=== PATIENT | female | born 1985 | race Caucasian/White ===

== ENCOUNTER 2016-12-11 14:14 | Emergency (ER) | payer OTHER ==
[~2016-12-11] VITALS: Ht 160 cm; Wt 63.5 kg
[~2016-12-11 14:14] MED LIST: TRAM-48 PO
[2016-12-11 14:15] VITALS: BP 130/85
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
[2016-12-11] MEDS: MORPHINE SULFATE 2 MG/ML DISP.SYRIN. IV/SQ PRN ×2 (15:27→16:14)
[2016-12-11 15:30] LABS: BILIRUBIN,URINE NEGATIVE (NEG); GLUCOSE,URINE NEGATIVE (NEG); NITRITE,URINE POSITIVE (NEG); PH,URINE 5.5; PROTEIN,URINE NEGATIVE (NEG-TRACE); UROBILINOGEN,URINE 0.2 mg/dL (0.2 mg/dL)
[2016-12-11] MEDS ORDERED: ONDANSETRON PF 4 MG/2 ML VIAL. IV ONE (15:30)
[2016-12-11] MEDS ORDERED: IV NORMAL SALINE 1000ML BAG 1,000 ML IV SCH (15:30)
[2016-12-11 16:01] LABS: BACTERIA,URINE MANY /HPF (0-FEW); RBC,URINE 0 /HPF (0-2); SQUAMOUS EPITHELIAL CELL,UR MOD /LPF
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
[2016-12-11] MEDS ORDERED: HYDR-971 PO (16:31)
[2016-12-11] MEDS ORDERED: HYDROcodone/APAP 7.5/325MG 1 TAB TABLET PO ONE (16:45)
[2016-12-11 17:05] LABS: BASO # 0.1 x10^3/uL (0.0-0.2); BASO % 1 % (0-3); EOS % 1 % (0-3); HEMATOCRIT 40.5 % (36.0-47.0); HEMOGLOBIN 13.8 g/dL (12.0-15.5); LYMPH # 3.1 x10^3/uL (1.0-4.8); LYMPH % 20 % (24-48); MEAN CORPUSCULAR HEMOGLOBIN 30 pg (25-35); MEAN CORPUSCULAR HGB CONC 34 g/dL (31-37); MEAN CORPUSCULAR VOLUME 89 fL (79-100); MONO % 5 % (0-9); NEUT % 73 % (31-73); PLATELET COUNT 340 x10^3/uL (140-400); RED BLOOD COUNT 4.57 x10^6/uL (3.50-5.40); RED CELL DISTRIBUTION WIDTH 13.2 % (11.5-14.5); WHITE BLOOD COUNT 15.2 x10^3/uL (4.0-11.0)
[2016-12-11 17:17] LABS: CALCIUM 8.8 mg/dL (8.5-10.1); CREATININE 0.7 mg/dL (0.6-1.0); GFR 98.3; POTASSIUM 4.1 mmol/L (3.5-5.1)
--- NOTE | 2016-12-12 10:46 | EKG ---
[facility] [address] [place] [address] Test Date: 2016-12-11 Test Time: 14:26:31 Pat Name: FREDERICK DALE Department: Room: Gender: F Senior [employer]: : 1985 Requested By: DELROY HOFFMAN Order Number: [id number] Reading MD: Payton Coyle Measurements Intervals [place] Rate: 98 P: 54 MI: 118 QRS: 70 QRSD: 86 T: 29 QT: 326 QTc: 418 Interpretive Statements SINUS RHYTHM INCOMPLETE RIGHT BUNDLE BRANCH BLOCK RI6.01 Unconfirmed report No previous ECG available for comparison Electronically Signed On 12-14-2016 22:23:34 CDT by Payton Coyle
--- NOTE | 2016-12-13 16:35 | VNOTE ---
CALL BACK NOTE CALL BACK Microbiology 12/11/16 Urine Culture - Final, Complete 12/11/16 Urine Culture Result 1 (BELKIS) - Final, Complete 12/11/16 Antimicrobic Susceptibility - Final, Complete Attempted to contact patient regards to urine being positive for Klebsiella pneumonia. Contacted the patient via phone number provided by registration. Phone message states that the phone number is not accepting any calls and no messages can be left. Patient will be notified by certified letter to the address provided by registration STACI VÁSQUEZ APRN Dec 13, 2016 16:35
== END 2016-12-11 16:55 | disposition home or self-care (01) ==
LOC: ER 14:14
DX: S16.1XXA Strain of muscle, fascia and tendon at neck level, initial encounter (principal); S09.90XA Unspecified injury of head, initial encounter; G89.29 Other chronic pain; M79.602 Pain in left arm; R07.89 Other chest pain; R00.0 Tachycardia, unspecified; F12.10 Cannabis abuse, uncomplicated; G90.512 Complex regional pain syndrome I of left upper limb; Z88.0 Allergy status to penicillin; Z90.89 Acquired absence of other organs; V49.60XA Unspecified car occupant injured in collision with unspecified motor vehicles in traffic accident, initial encounter; Y93.89 Activity, other specified; Y92.410 Unspecified street and highway as the place of occurrence of the external cause; Y99.8 Other external cause status
CPT/HCPCS: 36415; 70450; 72125; 80048; 81001; 81025; 85027; 87086; 87186; 93005; 96361; 96374; 96375; 96376; 99285; J2270; J2405; J3360; J7030